=== PATIENT | female | born 1995 | race Caucasian/White ===

== ENCOUNTER 2021-07-31 11:20 | Emergency (ER) | payer SELFPAY ==
[2021-07-31 11:30] VITALS: BP 121/77; PULSE 99; TEMP 98.4; BMI 39.0
[2021-07-31 12:12] LABS: EPI CELLS >36 /uL (0-25.1); HYALINE CASTS 2 /uL (0-3.1); PH,URINE 5.5 (5.0-8.0); URINE APPEARANCE CLOUDY; URINE BACTERIA 224 /uL (0-1359); URINE BILIRUBIN NEGATIVE (NEGATIVE); URINE COLOR YELLOW; URINE GLUCOSE (UA) NEGATIVE (NEGATIVE); URINE KETONE NEGATIVE (NEGATIVE); URINE LEUK ESTERASE 1+ (NEGATIVE); URINE NITRITE NEGATIVE (NEGATIVE); URINE PROTEIN NEGATIVE (NEGATIVE); URINE RBC 38 /uL (0-23.9); URINE UROBILINOGEN 0.2 mg/dL (0.2-1.0); URINE WBC 149 /uL (0-25.8)
[2021-07-31 12:23] LABS: HCG,QUALITATIVE URINE Negative
[2021-07-31] MEDS ORDERED: morphine CARPU-JECT 4 MG/1 ML DISP.SYRIN IVPUSH ONE (13:43)
[2021-07-31] MEDS ORDERED: ONDANSETRON 4 MG/2 ML VIAL IVPUSH ONE (13:44)
[2021-07-31] MEDS ORDERED: SODIUM CHLORIDE 0.9% 500 ML INFUS.BAG IV ONE (13:44)
[2021-07-31] MEDS ORDERED: ONDANSETRON 4 MG/2 ML VIAL ONE (13:52)
[2021-07-31] MEDS ORDERED: morphine SULFATE 4 MG/ML VIAL ONE (13:56)
[2021-07-31 14:04] LABS: HEMATOCRIT 35.5 % (32.4-45.2); HEMOGLOBIN 12.3 GM/dL (10.7-15.3); MCHC 34.7 g/dl (32.0-36.0); MEAN PLT VOLUME 7.7 fl (7.5-11.1); PLATELET COUNT 244 10^3/uL (134-434); RBC 4.55 M/mm3 (3.60-5.2); RDW 14.3 % (11.6-15.6); WHITE BLOOD COUNT 12.6 K/mm3 (4.0-10.0)
[2021-07-31 14:44] LABS: CALCIUM 8.8 mg/dL (8.5-10.1)
[2021-07-31 14:45] LABS: ALBUMIN 3.8 g/dl (3.4-5.0); BLOOD UREA NITROGEN 9.3 mg/dL (7-18)
[2021-07-31 14:48] LABS: CREATININE 0.7 mg/dL (0.55-1.3)
[2021-07-31 14:49] LABS: BILIRUBIN,TOTAL 0.5 mg/dL (0.2-1)
[2021-07-31 14:50] LABS: TOT PROT 7.9 g/dl (6.4-8.2)
[2021-07-31 14:52] LABS: ANISOCYTOSIS 3+; MACROCYTOSIS 0; PLATELET ESTIMATE NORMAL
[2021-07-31] MEDS ORDERED: CEFTRIAXONE 1,000 MG in DEXTROSE 5%-WATER - 50 ML IVPB ONE (14:53)
[2021-07-31] MEDS ORDERED: CEFTRIAXONE 1 GM/50 ML BAG ONE (14:58)
[2021-07-31] MEDS ORDERED: ACETAMINOPHEN 500 MG TABLET (FP) PO ONE (15:23)
[2021-07-31] MEDS ORDERED: ACETAMINOPHEN 500 MG TABLET (FP) ONE (15:24)
== END 2021-07-31 15:53 | disposition home or self-care (01) ==
LOC: JERFT 11:20
PROC: 3E033GC Introduction of Other Therapeutic Substance into Peripheral Vein, Percutaneous Approach (ICD-10-PCS; principal; 2021-07-31)
DX: N12 Tubulo-interstitial nephritis, not specified as acute or chronic (principal)
CPT/HCPCS: 36415; 80053; 81003; 84703; 85025; 87086; 87491; 87591; 99284-25

== ENCOUNTER 2021-12-26 11:58 | Emergency (ER) | payer OTHER ==
[2021-12-26 12:12] VITALS: BP 105/74; PULSE 87; TEMP 97.6; BMI 39.0
[2021-12-26 13:53] LABS: EPI CELLS 25 /uL (0-25.1); HCG,QUALITATIVE URINE Negative; HYALINE CASTS 1 /uL (0-3.1); URINE APPEARANCE CLOUDY; URINE BACTERIA 227 /uL (0-1359); URINE BILIRUBIN NEGATIVE (NEGATIVE); URINE COLOR YELLOW; URINE GLUCOSE (UA) NEGATIVE (NEGATIVE); URINE KETONE NEGATIVE (NEGATIVE); URINE LEUK ESTERASE 3+ (NEGATIVE); URINE NITRITE NEGATIVE (NEGATIVE); URINE PROTEIN TRACE (NEGATIVE); URINE RBC 94 /uL (0-23.9); URINE WBC 1028 /uL (0-25.8)
== END 2021-12-26 15:11 | disposition home or self-care (01) ==
LOC: JERFT 11:58
DX: N30.00 Acute cystitis without hematuria (principal); M25.561 Pain in right knee; M25.562 Pain in left knee
CPT/HCPCS: 36415; 73562-TC-LT-FY; 73562-TC-RT-FY; 81003; 84703; 87086; 87186; 87491; 87591; 99285-25

== ENCOUNTER 2022-04-23 17:29 | Emergency (ER) | payer OTHER ==
[2022-04-23 17:52] VITALS: BMI 41.0
[2022-04-23 19:54] LABS: BASO % 0.4 % (0-2.0); EOS % 1.2 % (0-4.5); HEMATOCRIT 38.4 % (32.4-45.2); LYMPH % 22.3 % (8-40); MCH 26.8 pg (25.7-33.7); MCHC 33.8 g/dl (32.0-36.0); MEAN CELL VOLUME 79.3 fl (80-96); MEAN PLT VOLUME 8.2 fl (7.5-11.1); MONO % 8.4 % (3.8-10.2); NEUT % 67.7 % (42.8-82.8); PLATELET COUNT 254 10^3/uL (134-434); RBC 4.84 M/mm3 (3.60-5.2); RDW 14.6 % (11.6-15.6); WHITE BLOOD COUNT 10.4 K/mm3 (4.0-10.0)
[2022-04-23 19:58] LABS: EPI CELLS >36 /uL (0-25.1); HYALINE CASTS 0 /uL (0-3.1); PH,URINE 5.5 (5.0-8.0); URINE APPEARANCE CLEAR; URINE BACTERIA 1303 /uL (0-1359); URINE BILIRUBIN NEGATIVE (NEGATIVE); URINE COLOR YELLOW; URINE GLUCOSE (UA) NEGATIVE (NEGATIVE); URINE KETONE NEGATIVE (NEGATIVE); URINE LEUK ESTERASE 2+ (NEGATIVE); URINE NITRITE NEGATIVE (NEGATIVE); URINE PROTEIN NEGATIVE (NEGATIVE); URINE RBC 10 /uL (0-23.9); URINE UROBILINOGEN 0.2 mg/dL (0.2-1.0); URINE WBC 60 /uL (0-25.8)
[2022-04-23 20:13] LABS: CHLORIDE 105 mmol/L (98-107); COCAINE, UR NEGATIVE (NEGATIVE); OPIATES, URI NEGATIVE (NEGATIVE); SODIUM 137 mmol/L (136-145); URINE BARBITURATES NEGATIVE (NEGATIVE)
[2022-04-23 20:14] LABS: PHENCYCLIDINE,URINE NEGATIVE (NEGATIVE)
[2022-04-23 20:15] LABS: ANION GAP 7 MMOL/L (8-16); BLOOD UREA NITROGEN 11.7 mg/dL (7-18); CALCIUM 9.3 mg/dL (8.5-10.1); CO2 25 mmol/L (21-32); GLUCOSE,RANDOM 84 mg/dL (74-106)
[2022-04-23 20:18] LABS: CREATININE 0.7 mg/dL (0.55-1.3); SGOT/AST 17 U/L (15-37); SGPT/ALT 22 U/L (13-61)
[2022-04-23 20:20] LABS: BILIRUBIN,TOTAL 0.3 mg/dL (0.2-1)
[2022-04-23 20:21] LABS: ALK PHOS 82 U/L (45-117)
[2022-04-23 20:22] LABS: METHADONE, UR NEGATIVE (NEGATIVE); URINE AMPHETAMINES NEGATIVE (NEGATIVE); URINE BENZODIAZEPINES NEGATIVE (NEGATIVE)
[2022-04-23] MEDS ORDERED: NITROFURANTOIN MACROCRYSTAL 50 MG CAPSULE (FP) ONE (22:30)
[2022-04-23] MEDS ORDERED: NITROFURANTOIN MACROCRYSTAL 50 MG CAPSULE (FP) PO ONE (22:30)
[2022-04-24 01:53] VITALS: TEMP 98
[2022-04-24] MEDS ORDERED: ACETAMINOPHEN 325 MG TABLET (FP) ONE (10:35)
[2022-04-24] MEDS ORDERED: ACETAMINOPHEN 325 MG TABLET (FP) PO ONE (10:35)
[2022-04-24 10:36] VITALS: BP 100/63; PULSE 62
== END 2022-04-24 11:15 | disposition home or self-care (01) ==
LOC: JER 17:29
DX: R45.851 Suicidal ideations (principal)
CPT/HCPCS: 36415; 80053; 80307; 81003; 84439; 84443; 84703; 85025; 87086; 99285-25; C9803-CS; U0003; U0005

== ENCOUNTER 2023-03-25 08:40 | Emergency (ER) | payer OTHER ==
[2023-03-25 08:44] VITALS: BP 131/80; PULSE 88; RESP 18; TEMP 98.4; BMI 40.4
[2023-03-25 09:27] LABS: EPI CELLS 15 /uL (0-25.1); HYALINE CASTS 0 /uL (0-3.1); URINE APPEARANCE CLOUDY; URINE BACTERIA >9,000 /uL (0-1359); URINE BILIRUBIN NEGATIVE (NEGATIVE); URINE COLOR YELLOW; URINE GLUCOSE (UA) NEGATIVE (NEGATIVE); URINE KETONE NEGATIVE (NEGATIVE); URINE LEUK ESTERASE 3+ (NEGATIVE); URINE NITRITE NEGATIVE (NEGATIVE); URINE PROTEIN TRACE (NEGATIVE); URINE RBC 120 /uL (0-23.9); URINE UROBILINOGEN 0.2 mg/dL (0.2-1.0); URINE WBC 1714 /uL (0-25.8)
[2023-03-25 09:28] LABS: HCG,QUALITATIVE URINE Negative
== END 2023-03-25 11:18 | disposition home or self-care (01) ==
LOC: JERFT 08:40
DX: R30.0 Dysuria (principal); R39.15 Urgency of urination
CPT/HCPCS: 81003; 84703; 87086; 87186; 99283-25

== ENCOUNTER 2024-05-30 14:18 | Emergency (ER) | payer OTHER ==
[2024-05-30 14:44] VITALS: BP 115/82; PULSE 95; RESP 20; TEMP 98.4; BMI 40.4
[2024-05-30] MEDS ORDERED: KETOROLAC TROMETHAMINE 30 MG/1 ML VIAL ONE (15:19)
[2024-05-30] MEDS: KETOROLAC TROMETHAMINE 30 MG/1 ML VIAL IVPUSH ONE (15:20)
[2024-05-30] MEDS: SODIUM CHLORIDE 0.9% 500 ML INFUS.BAG IV ONE (15:20)
[2024-05-30 15:30] LABS: BASO % 0.6 % (0-2.0); EOS % 1.2 % (0-4.5); HEMATOCRIT 38.2 % (32.4-45.2); HEMOGLOBIN 13.3 GM/dL (10.7-15.3); LYMPH % 20.6 % (8-40); MCH 27.8 pg (25.7-33.7); MCHC 34.8 g/dl (32.0-36.0); MEAN CELL VOLUME 79.9 fl (80-96); MEAN PLT VOLUME 7.8 fl (7.5-11.1); MONO % 9.2 % (3.8-10.2); NEUT % 68.4 % (42.8-82.8); PLATELET COUNT 261 10^3/uL (134-434); RBC 4.78 M/mm3 (3.60-5.2); RDW 14.4 % (11.6-15.6); WHITE BLOOD COUNT 5.4 K/mm3 (4.0-10.0)
[2024-05-30 15:34] LABS: EPI CELLS >36 /uL (0-25.1); HYALINE CASTS 0 /uL (0-3.1); PH,URINE 6.5 (5.0-8.0); URINE APPEARANCE CLEAR; URINE BACTERIA 1076 /uL (0-1359); URINE BILIRUBIN NEGATIVE (NEGATIVE); URINE COLOR YELLOW; URINE GLUCOSE (UA) NEGATIVE (NEGATIVE); URINE KETONE NEGATIVE (NEGATIVE); URINE LEUK ESTERASE 1+ (NEGATIVE); URINE NITRITE NEGATIVE (NEGATIVE); URINE PROTEIN NEGATIVE (NEGATIVE); URINE RBC 15 /uL (0-23.9); URINE WBC 14 /uL (0-25.8)
[2024-05-30 15:51] LABS: POTASSIUM 3.8 mmol/L (3.5-5.1)
[2024-05-30 15:53] LABS: CALCIUM 8.9 mg/dL (8.5-10.1)
[2024-05-30 15:54] LABS: BLOOD UREA NITROGEN 9.5 mg/dL (7-18)
[2024-05-30 15:56] LABS: CREATININE 0.7 mg/dL (0.55-1.3)
[2024-05-30 15:58] LABS: BILIRUBIN,TOTAL 0.4 mg/dL (0.2-1); TOT PROT 7.8 g/dl (6.4-8.2)
== END 2024-05-30 17:37 | disposition home or self-care (01) ==
LOC: JER 14:18
PROC: 3E0333Z Introduction of Anti-inflammatory into Peripheral Vein, Percutaneous Approach (ICD-10-PCS; principal; 2024-05-30)
DX: R10.9 Unspecified abdominal pain (principal)
CPT/HCPCS: 36415; 74176-TC; 80053; 81003; 83690; 84703; 85025; 87086; 99284-25